=== PATIENT | female | born 1935 | race Caucasian/White ===

== ENCOUNTER 2018-09-13 06:05 | Day surgery (SDC) | payer MEDICARE, OTHER ==
[2018-09-13] MEDS ORDERED: Sodium Chloride 0.9% 10 ML Syringe FLUSH PRN (06:15)
[2018-09-13] MEDS ORDERED: Sodium Chloride 0.9% 1,000 ML IV SCH (06:15)
[2018-09-13] MEDS ORDERED: Gatifloxacin 0.5% Ophth Soln 2.5 ML Bot EYERT SCH (06:15)
[2018-09-13] MEDS: Cyclopentolate 1% Opth Soln 2 ML Bottle EYERT SCH ×3 (06:27→07:02)
[2018-09-13] MEDS: Phenylephrine 10% Ophth Soln 5 ML Bot EYERT SCH ×3 (06:34→07:08)
[2018-09-13] MEDS ORDERED: Carbachol 0.01% Intraocular 1.5 ML Vial EYERT ONE (08:51)
[2018-09-13] MEDS ORDERED: Balanced Salt Solution Plus Ophth Irrig 500 ML Bottle IOCULAR ONE (08:51)
[2018-09-13] MEDS ORDERED: Water For Irrigation,Sterile 1,500 ML Container IRR ONE (08:51)
[2018-09-13] MEDS ORDERED: Balanced Salt Solution Ophth Irrig 15 ML Bottle EYERT ONE (08:51)
[2018-09-13] MEDS ORDERED: Dexamethasone/Neomycin/Polymyxin B Ophth Oint 3.5 GM Tube EYERT ONE (08:52)
[2018-09-13] MEDS ORDERED: EPINEPHrine 1 MG/ML SDV ONE (08:52)
[2018-09-13] MEDS ORDERED: Lidocaine 2% with EPINEPHrine 1:100,000 20 ML MDV INJECT ONE (08:52)
[2018-09-13] MEDS ORDERED: Lidocaine 1% 10 ML MDV INJECT ONE (08:53)
[2018-09-13] MEDS ORDERED: Hyaluronate Sodium 1% 0.85 ML Syringe IOCULAR ONE ×2 (08:53)
[2018-09-13] MEDS ORDERED: Tetracaine HCl/PF 0.5% 4 ML Bottle EYEBOTH ONE (08:53)
--- NOTE | 2018-09-14 08:19 | OR ---
DATE OF SURGERY: 09/13/2018 SURGEON: Chente Nuñez MD PREOPERATIVE DIAGNOSIS: Cataract, right eye. POSTOPERATIVE DIAGNOSIS: Cataract, right eye. OPERATION PERFORMED: Phacoemulsification with posterior chamber lens insertion, right eye. HISTORY: The patient presents at this time with an increasing amount of difficulty seeing to read. The vision for the right eye is 20/100 -1. The right lens has a 3+ nuclear sclerosis, a 3+ cortical change, and a 3+ posterior subcapsular change. 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 FINDINGS: The patient was taken to the operating room where appropriate anesthesia, sedation and monitoring were provided. A retrobulbar block was given on the right side. The eye was massaged and was found to be appropriately soft. The eye and eyelids were then prepped and draped in the usual sterile manner. A lid speculum was placed. A micro sharp blade was used to enter the anterior chamber inside the limbus superior-temporally. Xylocaine was irrigated into the eye at this site. Healon was irrigated into the eye through this site. Then using a 2.85 mm corneal blade an entry was made into the anterior chamber just inside the limbus temporally. Healon was again irrigated into the eye. Then using a cystitome, the anterior capsulorrhexis was created. The lens nucleus was hydrodissected using a 27 gauge cannula and balanced salt solution. The phacoemulsification unit was introduced through the temporal site and the Duran spatula through the superior temporal site. In so doing, the lens nucleus was phacoemulsified. The cortical fragments of the lens were removed using the irrigation aspiration unit. The posterior capsule was polished. Healon was irrigated into the eye. The posterior chamber lens was inserted and rotated into position inside the capsular bag. The Healon was irrigated out of the eye. Miostat was irrigated into the eye and the pupil rounded nicely. A single interrupted 10-0 Nylon suture was placed through the temporal corneal incision site. Balanced salt solution was irrigated into the eye. The wound was tested and found to be tight. Maxitrol ointment was placed into the patient's right eye. The eyelids were closed and an eye patch and marie shield were placed. The patient left the operating room in good condition. /[id number]/MODL
== END 2018-09-13 09:47 | disposition home or self-care (01) ==
LOC: KA.SDS 06:05
PROVIDERS: ATTEND Ophthalmology
DX: E11.36 Type 2 diabetes mellitus with diabetic cataract (principal); H25.811 Combined forms of age-related cataract, right eye; I12.9 Hypertensive chronic kidney disease with stage 1 through stage 4 chronic kidney disease, or unspecified chronic kidney disease; E11.22 Type 2 diabetes mellitus with diabetic chronic kidney disease; N18.3 Chronic kidney disease, stage 3 (moderate); E66.9 Obesity, unspecified; Z68.41 Body mass index [BMI] 40.0-44.9, adult; E78.5 Hyperlipidemia, unspecified; F32.9 Major depressive disorder, single episode, unspecified; C91.90 Lymphoid leukemia, unspecified not having achieved remission; Z79.4 Long term (current) use of insulin; Z88.0 Allergy status to penicillin
CPT/HCPCS: 66984; 82962; A9270; C1780; J0171; J2001; J7030; 00142

== ENCOUNTER 2018-10-11 06:02 | Day surgery (SDC) | payer MEDICARE, OTHER ==
[2018-10-11] MEDS ORDERED: Sodium Chloride 0.9% 10 ML Syringe FLUSH PRN (06:15)
[2018-10-11] MEDS ORDERED: Sodium Chloride 0.9% 1,000 ML IV SCH (06:15)
[2018-10-11] MEDS ORDERED: Gatifloxacin 0.5% Ophth Soln 2.5 ML Bot EYELF SCH (06:15)
[2018-10-11] MEDS: Phenylephrine 10% Ophth Soln 5 ML Bot EYELF SCH ×3 (06:23→06:45)
[2018-10-11] MEDS: Cyclopentolate 1% Opth Soln 2 ML Bottle EYELF SCH ×3 (06:28→06:50)
[2018-10-11] MEDS ORDERED: Balanced Salt Solution Plus Ophth Irrig 500 ML Bottle IOCULAR ONE (08:56)
[2018-10-11] MEDS ORDERED: Balanced Salt Solution Ophth Irrig 15 ML Bottle EYELF ONE (08:56)
[2018-10-11] MEDS ORDERED: Water For Irrigation,Sterile 1,500 ML Container IRR ONE (08:56)
[2018-10-11] MEDS ORDERED: Carbachol 0.01% Intraocular 1.5 ML Vial EYELF ONE (08:56)
[2018-10-11] MEDS ORDERED: Lidocaine 2% with EPINEPHrine 1:100,000 20 ML MDV INJECT ONE (08:57)
[2018-10-11] MEDS ORDERED: Dexamethasone/Neomycin/Polymyxin B Ophth Oint 3.5 GM Tube EYELF ONE (08:57)
[2018-10-11] MEDS ORDERED: EPINEPHrine 1 MG/ML SDV ONE (08:57)
[2018-10-11] MEDS ORDERED: Tetracaine HCl/PF 0.5% 4 ML Bottle EYEBOTH ONE (08:59)
[2018-10-11] MEDS ORDERED: Lidocaine 1% 10 ML MDV INJECT ONE (08:59)
[2018-10-11] MEDS ORDERED: Hyaluronate Sodium 1% 0.85 ML Syringe IOCULAR ONE ×2 (08:59)
--- NOTE | 2018-10-12 10:00 | OR ---
DATE OF SURGERY: 10/11/2018 SURGEON: Chente Nuñez MD PREOPERATIVE DIAGNOSIS: Cataract, left eye. POSTOPERATIVE DIAGNOSIS: Cataract, left eye. OPERATION PERFORMED: Phacoemulsification with posterior chamber lens insertion, left eye. HISTORY: The patient presents at this time with an increasing amount of difficulty seeing to read using left eye. The left eye is a vision of 20/50 -2. The left lens has a 3+ nuclear sclerosis with 2+ cortical change and 1 to 2+ posterior subcapsular change. This eye has a combined cataract and a cataract of aging. FINDINGS: The patient was taken to the operating room where appropriate anesthesia, sedation and monitoring were provided. A retrobulbar block was given on the left side. The eye was massaged and was found to be appropriately soft. The eye and eyelids were then prepped and draped in the usual sterile manner. A lid speculum was placed. A micro sharp blade was used to enter the anterior chamber inside the limbus inferior-temporally. Xylocaine was irrigated into the eye at this site. Healon was irrigated into the eye through this site. Then using a 2.85 mm corneal blade an entry was made into the anterior chamber just inside the limbus temporally. Healon was again irrigated into the eye. Then using a cystitome, the anterior capsulorrhexis was created. The lens nucleus was hydrodissected using a 27 gauge cannula and balanced salt solution. The phacoemulsification unit was introduced through the temporal site and the Duran spatula through the inferior temporal site. In so doing, the lens nucleus was phacoemulsified. The cortical fragments of the lens were removed using the irrigation aspiration unit. The posterior capsule was polished. Healon was irrigated into the eye. The posterior chamber lens was inserted and rotated into position inside the capsular bag. The Healon was irrigated out of the eye. Miostat was irrigated into the eye and the pupil rounded nicely. A single interrupted 10-0 Nylon suture was placed through the temporal corneal incision site. Balanced salt solution was irrigated into the eye. The wound was tested and found to be tight. Maxitrol ointment was placed into the patient's left eye. The eyelids were closed and an eye patch and marie shield were placed. The patient left the operating room in good condition. /[id number]/MODL
== END 2018-10-11 09:45 | disposition home or self-care (01) ==
LOC: KA.SDS 06:02
PROVIDERS: ATTEND Ophthalmology
DX: E11.36 Type 2 diabetes mellitus with diabetic cataract (principal); H25.812 Combined forms of age-related cataract, left eye; I10 Essential (primary) hypertension; E66.9 Obesity, unspecified; Z68.41 Body mass index [BMI] 40.0-44.9, adult; E78.5 Hyperlipidemia, unspecified; F32.9 Major depressive disorder, single episode, unspecified; Z79.82 Long term (current) use of aspirin; Z79.84 Long term (current) use of oral hypoglycemic drugs; Z79.899 Other long term (current) drug therapy; Z98.41 Cataract extraction status, right eye; Z88.0 Allergy status to penicillin
CPT/HCPCS: 00142; 82962; A9270-GY; C1780; J0171; J2001; J7030

== ENCOUNTER 2019-04-13 20:25 | Emergency (ER) | payer MEDICARE, OTHER ==
--- NOTE | 2019-04-13 20:45 | EDM.PDOC ---
ED HPI GENERAL MEDICAL PROBLEM - General Chief Complaint: General Stated Complaint: generalized weakness Time Seen by Provider: 04/13/19 20:38 Source of Information: Reports: Patient, Family (Daughter) History Limitations: Reports: No Limitations - History of Present Illness INITIAL COMMENTS - FREE TEXT/NARRATIVE: Patient is an 83-year-old female who presents to the emergency department this evening with a complaint of generalized weakness. Per daughter patient has just not been feeling well today. There are no specific complaints. However, patient did present to the emergency Department with a fever of 101.6. Patient has history of hypertension, renal insufficiency, and [id number] diabetes. Patient denies nausea, vomiting, diarrhea, dysuria, abdominal pain, headache, chest pain, or shortness of breath. Onset: Today Duration: Hour(s): Severity: Mild Improves with: Reports: None Worsens with: Reports: None Associated Symptoms: Reports: Fever/Chills, Malaise. Denies: Chest Pain, Cough , Headaches, Nausea/Vomiting, Shortness of Breath - Related Data Allergies Allergy/AdvReac Type Severity Reaction Status Date / Time Penicillins Allergy Cannot Verified 04/13/19 20:44 Remember Home Meds: Home Meds Acetaminophen 1,000 mg PO TID PRN 09/06/18 [History] Aspirin [Halfprin] 81 mg PO DAILY 09/06/18 [History] Beta-Carotene [Beta Carotene] 1 tab PO DAILY 09/06/18 [History] Calcium Carbonate/Vitamin D3 [Calcium Carbonate/Vitamin D 600 MG-200 Unit] 1 tab PO BID 09/06/18 [History] Glimepiride 1 mg PO DAILY 09/06/18 [History] Lisinopril 20 mg PO DAILY 09/06/18 [History] Metoprolol Succinate 25 mg PO DAILY 09/06/18 [History] Multivitamin [Multivitamins] 1 cap PO DAILY 09/06/18 [History] Sertraline [Zoloft] 100 mg PO DAILY 09/06/18 [History] atorvaSTATin Calcium [Atorvastatin Calcium] 40 mg PO DAILY 09/06/18 [History] buPROPion [buPROPion XL] 150 mg PO DAILY 09/06/18 [History] metFORMIN HCl [Metformin HCl] 1,000 mg PO DAILY 09/06/18 [History] Cephalexin [Keflex] 500 mg PO TID #21 capsule 04/13/19 [Rx] Past Medical History HEENT History: Reports: Cataract Cardiovascular History: Reports: High Cholesterol, Hypertension, Other (See Below) Other Cardiovascular History: cardiomegaly Gastrointestinal History: Reports: None [employer] SALES History: Reports: Musculoskeletal History: Reports: Arthritis, Back Pain, Chronic, Other (See Below) Other Musculoskeletal History: osteopenia Psychiatric History: Reports: Depression Endocrine/Metabolic History: Reports: Diabetes, Type II, Obesity/BMI 30+, Osteopenia Hematologic History: Reports: Blood Transfusion(s) Oncologic (Cancer) History: Reports: Other (See Below) Other Oncologic History: CLL - Infectious Disease History Infectious Disease History: Reports: Chicken Pox, Measles, Mumps, Rubella - Past Surgical History HEENT Surgical History: Reports: Cataract Surgery, Oral Surgery, Tonsillectomy Cardiovascular Surgical History: Reports: None GI Surgical History: Reports: Colonoscopy Endocrine Surgical History: Reports: None Musculoskeletal Surgical History: Reports: None Social & Family History - Caffeine Use Caffeine Use: Reports: Coffee, Soda, Tea Other Caffeine Use: diet ED ROS GENERAL - Review of Systems Review Of Systems: ROS reveals no pertinent complaints other than HPI. Constitutional: Reports: Fever, Weakness HEENT: Reports: No Symptoms Respiratory: Reports: No Symptoms Cardiovascular: Reports: No Symptoms Endocrine: Reports: No Symptoms GI/Abdominal: Reports: No Symptoms : Reports: No Symptoms Musculoskeletal: Reports: No Symptoms Skin: Reports: No Symptoms Neurological: Reports: No Symptoms Psychiatric: Reports: No Symptoms Hematologic/Lymphatic: Reports: No Symptoms Immunologic: Reports: No Symptoms ED EXAM, GENERAL - Physical Exam Exam: See Below Exam Limited By: No Limitations General Appearance: Alert, WD/WN, No Apparent Distress Eye Exam: Bilateral Eye: Normal Inspection Nose: Normal Inspection, Normal Mucosa, No Blood Throat/Mouth: Normal Inspection, Normal Oropharynx, No Airway Compromise Head: Atraumatic, Normocephalic Neck: Normal Inspection, Supple Respiratory/Chest: No Respiratory Distress, Lungs Clear, Normal Breath Sounds, No Accessory Muscle Use, Chest Non-Tender Cardiovascular: Regular Rate, Rhythm, No Murmur GI/Abdominal: Normal Bowel Sounds, Soft, Non-Tender Back Exam: Normal Inspection. No: CVA Tenderness (L), CVA Tenderness (R) Extremities: Pedal Edema (2+ of chronic nature) Neurological: Alert, Oriented, Normal Cognition Psychiatric: Normal Affect, Normal Mood Skin Exam: Warm, Dry, Intact, Normal Color, No Rash Lymphatic: No Adenopathy Course - Vital Signs Last Recorded V/S: Last Vital Signs Temp 101.6 F H 04/13/19 20:47 Pulse 83 04/13/19 20:30 Resp 18 04/13/19 20:30 BP 126/40 L 04/13/19 20:30 Pulse Ox 92 L 04/13/19 20:30 - Orders/Labs/Meds Orders: Active Orders 24 hr Category Date Time Status CBC WITH AUTO DIFF [HEME] Stat Lab 04/13/19 20:39 Ordered CULTURE URINE [RM] Stat Lab 04/13/19 22:05 Ordered MANUAL DIFFERENTIAL QA/NC [HEME] Stat Lab 04/13/19 21:25 Results UA RFX MIGUE AND CULT IF INDIC [URIN] Stat Lab 04/13/19 20:39 Ordered UA W/O MICROSCOPIC [URIN] Stat Lab 04/13/19 20:39 Ordered Labs: Laboratory Tests 04/13/19 04/13/19 04/13/19 Range/Units 20:39 21:25 21:25 WBC 37.69 H* (5.00-10.00) 10^3/uL RBC 4.56 (3.80-5.50) 10^6/uL Hgb 12.7 (12.0-16.0) g/dL Hct 39.2 (37.0-47.0) % MCV 86.0 D (82.0-92.0) fL MCH 27.9 (27.0-31.0) pg MCHC 32.4 (32.0-36.0) g/dL RDW 14.0 (11.5-14.5) % Plt Count 199 (150-400) 10^3/uL MPV 9.1 (7.4-10.4) fL Add Manual Diff Yes Sodium 135 L (136-145) mmol/L Potassium 4.6 (3.3-5.3) mmol/L Chloride 98 (98-115) mmol/L Carbon Dioxide 25.8 (21.0-32.0) mmol/L Anion Gap 15.8 H (5-15) mmol/L BUN 23 (6-25) mg/dL Creatinine 1.32 H (0.51-1.17) mg/dL Est Cr Clr Drug Dosing 33.15 mL/min Estimated GFR (MDRD) 39 mL/min Glucose 114 H (75 - 99) mg/dL Calcium 9.1 (8.7-10.3) mg/dL Total Bilirubin 0.7 (0.2-1.0) mg/dL AST 16 (15-37) U/L ALT 18 (12-78) U/L Alkaline Phosphatase 85 (46-116) IU/L Total Protein 7.1 (6.4-8.2) g/dL Albumin 3.46 (3.00-4.80) g/dL Specimen Type Urinvoid Urine Color Yellow (YELLOW) Urine Appearance Clear (CLEAR) Urine pH 6.0 (5.0-9.0) Ur Specific [place] 1.020 (1.005-1.030) Urine Protein 30 H (NEGATIVE) mg/dL Urine Glucose (UA) Negative (NEGATIVE) mg/dL Urine Ketones Negative (NEGATIVE) mg/dL Urine Occult Blood Trace-intact H (NEGATIVE) Urine Nitrite Negative (NEGATIVE) Urine Bilirubin Negative (NEGATIVE) Urine Urobilinogen 0.2 (0.2-1.0) E.U./dL Ur Leukocyte Esterase Small H (NEGATIVE) Meds: Medications Discontinued Medications Generic Name Dose Route Start Last Admin Trade Name Freq PRN Reason Stop Dose Admin Acetaminophen 650 mg 04/13/19 20:39 04/13/19 20:47 Tylenol PO 04/13/19 20:40 650 mg NOW ONE Administration Cephalexin 500 mg 04/13/19 22:04 Keflex PO 04/13/19 22:05 ONETIME ONE - Re-Assessments/Exams Free Text/Narrative Re-Assessment/Exam: 04/13/19 22:06 Patient now afebrile, vital signs stable, nontoxic appearing, given 500 mg Keflex in ER. Leukocytosis of chronic nature. Departure - Departure Time of Disposition: 22:07 Disposition: Home, Self-Care 01 Condition: Good Clinical Impression: UTI, Urinary tract infectious disease - Discharge Information Prescriptions: Cephalexin [Keflex] 500 mg PO TID #21 capsule Instructions: Urinary Tract Infection, Adult, [id number], Fever, Adult Referrals: Radha Gregorio MD [Physician] - Forms: ED Department Discharge Additional Instructions: Follow-up with Dr. Gordon on Wednesday. Return to emergency department sooner if symptoms continue or worsen. - My Orders Last 24 Hours: My Active Orders 04/13/19 20:39 CBC WITH AUTO DIFF [HEME] Stat UA RFX MIGUE AND CULT IF INDIC [URIN] Stat UA W/O MICROSCOPIC [URIN] Stat 04/13/19 21:25 MANUAL DIFFERENTIAL QA/NC [HEME] Stat 04/13/19 22:05 CULTURE URINE [RM] Stat - Assessment/Plan Last 24 Hours: My Active Orders 04/13/19 20:39 CBC WITH AUTO DIFF [HEME] Stat UA RFX MIGUE AND CULT IF INDIC [URIN] Stat UA W/O MICROSCOPIC [URIN] Stat 04/13/19 21:25 MANUAL DIFFERENTIAL QA/NC [HEME] Stat 04/13/19 22:05 CULTURE URINE [RM] Stat Assessment:: Urinary tract infection Plan: Follow-up with Dr. Gordon
[2019-04-13] MEDS: Acetaminophen 325 MG Tab PO ONE (20:47)
[2019-04-13 21:59] LABS: ANION GAP 15.8 mmol/L (5-15)
[2019-04-13] MEDS: Cephalexin 250 MG Cap PO ONE (22:10)
== END 2019-04-13 22:10 | disposition home or self-care (01) ==
LOC: KA.ED 20:25
DX: N39.0 Urinary tract infection, site not specified (principal); I10 Essential (primary) hypertension; E78.00 Pure hypercholesterolemia, unspecified; M19.90 Unspecified osteoarthritis, unspecified site; F32.9 Major depressive disorder, single episode, unspecified; E11.9 Type 2 diabetes mellitus without complications; E66.9 Obesity, unspecified; Z68.41 Body mass index [BMI] 40.0-44.9, adult; Z88.0 Allergy status to penicillin; Z79.82 Long term (current) use of aspirin; Z79.899 Other long term (current) drug therapy; Z79.84 Long term (current) use of oral hypoglycemic drugs
CPT/HCPCS: 36415; 80053; 81003; 85025; 87086; 87088; 87186; 99284; A9270-GY

== ENCOUNTER 2020-04-08 18:10 | Emergency (ER) | payer MEDICARE, OTHER ==
--- NOTE | 2020-04-08 18:14 | EDM.PDOC ---
ED HPI GENERAL MEDICAL PROBLEM - General Chief Complaint: Trauma Stated Complaint: Fall Time Seen by Provider: 04/08/20 18:14 Source of Information: Reports: Patient, Family - History of Present Illness INITIAL COMMENTS - FREE TEXT/NARRATIVE: Momo, while folding close, got her feet tangled up causing her to fall forward. Struck nose and forehead directly onto the floor. Does not think there was loss of consciousness but has already developed bruising to the nose and between the eyes of the forehead with swelling. States she takes aspirin daily, 81 mg every morning, but also will take aspirin throughout the day if aches or pains develop that are more severe than her Tylenol benefits. States she started antibiotic therapy today secondary of UTI that developed late last week and worsened over the weekend. Denies fever chills or any COVID-19 exposure risk. Onset: Today Face/Facial Pain Score (Numeric/FACES): 4 - Related Data Allergies Allergy/AdvReac Type Severity Reaction Status Date / Time Penicillins Allergy Cannot Verified 04/08/20 18:29 Remember Home Meds: Home Meds Aspirin [Halfprin] 81 mg PO DAILY 09/06/18 [History] Calcium Carbonate/Vitamin D3 [Calcium Carbonate/Vitamin D 600 MG-200 Unit] 1 tab PO DAILY 09/06/18 [History] Glimepiride 1 mg PO DAILY 09/06/18 [History] Lisinopril 20 mg PO DAILY 09/06/18 [History] Metoprolol Succinate 25 mg PO DAILY 09/06/18 [History] Multivitamin [Multivitamins] 1 cap PO DAILY 09/06/18 [History] Sertraline [Zoloft] 100 mg PO DAILY 09/06/18 [History] atorvaSTATin Calcium [Atorvastatin Calcium] 40 mg PO DAILY 09/06/18 [History] buPROPion [buPROPion XL] 150 mg PO DAILY 09/06/18 [History] metFORMIN HCl [Metformin HCl] 1,000 mg PO DAILY 09/06/18 [History] Acetaminophen [Tylenol] 325 mg PO Q4H PRN 04/08/20 [History] Sulfamethoxazole/Trimethoprim [Bactrim Ds Tablet] 1 each PO BID 04/08/20 [History] Past Medical History HEENT History: Reports: Cataract, Impaired Vision Cardiovascular History: Reports: High Cholesterol, Hypertension, Other (See Below) Other Cardiovascular History: cardiomegaly Gastrointestinal History: Reports: None [employer]ESS [employer] History: Reports: Musculoskeletal History: Reports: Arthritis, Back Pain, Chronic, Other (See Below) Other Musculoskeletal History: osteopenia Psychiatric History: Reports: Depression Endocrine/Metabolic History: Reports: Diabetes, Type II, Obesity/BMI 30+, Osteopenia Hematologic History: Reports: Blood Transfusion(s) Oncologic (Cancer) History: Reports: Other (See Below) Other Oncologic History: CLL - Infectious Disease History Infectious Disease History: Reports: Chicken Pox, Measles, Mumps, Rubella - Past Surgical History HEENT Surgical History: Reports: Cataract Surgery, Oral Surgery, Tonsillectomy Cardiovascular Surgical History: Reports: None GI Surgical History: Reports: Colonoscopy Endocrine Surgical History: Reports: None Musculoskeletal Surgical History: Reports: None Social & Family History - Family History Family Medical History: Noncontributory - Caffeine Use Caffeine Use: Reports: Coffee, Soda, Tea Other Caffeine Use: diet ED ROS GENERAL - Review of Systems Review Of Systems: Comprehensive ROS is negative, except as noted in HPI. ED EXAM, GENERAL - Physical Exam Exam: See Below Free Text/Narrative:: Alert oriented and cheerful. There is deformity to the nasal bones with swelling at the bridge of the nose as well as hematoma contusion and ecchymosis between the eyes to the inferior forehead. PERRLA no icterus no injection. Nose is tender to touch with nares showing no evidence of epistaxis. [place] moist mucous membranes. Neck soft supple no cervical tenderness no rigidity. Thorax is clear throughout no wheezes no crackles. Cardiac is regular I do not appreciate any murmur. No injury or complaint to the upper extremities is noted. No abdominal pelvic or lower extremity discomfort. Course - Vital Signs Last Recorded V/S: Last Vital Signs Temp 37.1 C 04/08/20 18:19 Pulse 78 04/08/20 18:19 Resp 18 04/08/20 18:19 BP 135/69 04/08/20 18:19 Pulse Ox 94 L 04/08/20 18:19 - Orders/Labs/Meds Orders: Active Orders 24 hr Category Date Time Status Facial Bones Comp Min 3V [CR] Stat Exams 04/08/20 18:24 Stop Req Labs: Laboratory Tests 04/08/20 04/08/20 Range/Units 18:38 18:38 WBC 30.37 H* (5.00-10.00) 10^3/uL RBC 4.41 (3.80-5.50) 10^6/uL Hgb 12.2 (12.0-16.0) g/dL Hct 39.2 (37.0-47.0) % MCV 88.9 (82.0-92.0) fL MCH 27.7 (27.0-31.0) pg MCHC 31.1 L (32.0-36.0) g/dL RDW 13.7 (11.5-14.5) % RDW Std Deviation Cancelled RDW Coeff of Arnie Cancelled Plt Count 197 (150-400) 10^3/uL MPV 9.6 (7.4-10.4) fL Add Manual Diff Yes Neutrophils % (Manual) 32 L (50-70) % Band Neutrophils % 1 L (4-12) % Lymphocytes % (Manual) 61 H (20-40) % Monocytes % (Manual) 2 (2-8) % Eosinophils % (Manual) 4 H (1-3) % Nucleated RBC % Cancelled Absolute Neutrophils 9.72 Band Neutrophils # 0.30 Lymphocytes # (Manual) 18.53 Monocytes # (Manual) 0.61 Eosinophils # (Manual) 1.21 Immature Plt Fraction Cancelled Sodium 140 (136-145) mmol/L Potassium 5.0 (3.3-5.3) mmol/L Chloride 104 (98-115) mmol/L Carbon Dioxide 23.4 (21.0-32.0) mmol/L Anion Gap 17.6 H (5-15) mmol/L BUN 35 H (6-25) mg/dL Creatinine 1.41 H (0.51-1.17) mg/dL Est Cr Clr Drug Dosing 30.50 mL/min Estimated GFR (MDRD) 36 mL/min Glucose 126 H (75 - 99) mg/dL Calcium 8.7 (8.7-10.3) mg/dL - Re-Assessments/Exams Free Text/Narrative Re-Assessment/Exam: 04/08/20 18:43 While awaiting lab draw and radiology, started developing some tenderness to the cervical spine, and cervical paraspinal muscles. Departure - Departure Time of Disposition: 19:46 Disposition: Home, Self-Care 01 Condition: Good Clinical Impression: Closed fracture nasal bone, Fall, Contusion, UTI, Urinary tract infectious disease, Hematoma, Leukocytosis, Pain of cervical spine - Discharge Information *PRESCRIPTION DRUG MONITORING PROGRAM REVIEWED*: Not Applicable *COPY OF PRESCRIPTION DRUG MONITORING REPORT IN PATIENT THOMAS: Not Applicable Instructions: Nasal Fracture, [id number], Nasal Fracture, Urinary Tract Infection, Adult, [id number] Referrals: Radha Gregorio MD [Primary Care Provider] - Forms: ED Department Discharge Additional Instructions: Your neck and head are negative for any acute fracture injury. You have swelling of your forehead. There is a slight nasal bone fracture which does not require treatment at this time. You have elevated white count likely due to the urine infection that you know you have and are being treated for. Continue your medications as directed, making sure you do not miss any of your antibiotic. Increase the amount of water you are drinking to improve your urine infection treatment, as well as your kidney number. You need to get to the clinic and see Lana either Wednesday afternoon or to have your white blood cell count reevaluated and recheck on your urine infection improvement. You would be better taking only the one baby aspirin each morning, and using Tylenol or ibuprofen if you have additional aches and pains developing during the day. The more aspirin you take the easier it is to have continued bleeding when you have any type of injury. Call the clinic tomorrow to establish the appointment for Wednesday or . The nasal bones typically do not require any form of treatment, unless it leads to breathing difficulty or changes in your sinus infection or nasal drainage. Call or return if symptoms change or worsen for concern. Sepsis Event Note (ED) - Focused Exam Vital Signs: Vital Signs Temp Pulse Resp BP Pulse Ox 04/08/20 18:19 37.1 C 78 18 135/69 94 L - Problem List & Annotations (1) Fall SNOMED Code(s): 3384687, 058680789 Code(s): W19.XXXA - UNSPECIFIED FALL, INITIAL ENCOUNTER Status: Acute Priority: Medium Qualifiers: Encounter type: initial encounter Qualified Code(s): W19.XXXA - Unspecified fall, initial encounter (2) Hematoma SNOMED Code(s): 750394615 Code(s): T14.8XXA - OTHER INJURY OF UNSPECIFIED BODY REGION, INITIAL ENCOUNTER Status: Acute Priority: High (3) Contusion SNOMED Code(s): 315363535 Code(s): T14.8XXA - OTHER INJURY OF UNSPECIFIED BODY REGION, INITIAL ENCOUNTER Status: Acute Priority: High Qualifiers: Encounter type: initial encounter Contusion area: head Contusion of head detail: other part of head Qualified Code(s): S00.83XA - Contusion of other part of head, initial encounter (4) Pain of cervical spine SNOMED Code(s): 154641643 Code(s): M54.2 - CERVICALGIA Status: Acute Priority: High (5) Leukocytosis SNOMED Code(s): 361970999, 624529586 Code(s): D72.829 - ELEVATED WHITE BLOOD CELL COUNT, UNSPECIFIED Status: Acute Priority: High Qualifiers: Qualified Code(s): D72.829 - Elevated white blood cell count, unspecified (6) Closed fracture nasal bone SNOMED Code(s): 72700265 Code(s): S02.2XXA - FRACTURE OF NASAL BONES, INIT ENCNTR FOR CLOSED FRACTURE Status: Acute Qualifiers: Encounter type: initial encounter Qualified Code(s): S02.2XXA - Fracture of nasal bones, initial encounter for closed fracture - Problem List Review Problem List Initiated/Reviewed/Updated: Yes - My Orders Last 24 Hours: My Active Orders 04/08/20 18:24 Facial Bones Comp Min 3V [CR] Stat - Assessment/Plan Last 24 Hours: My Active Orders 04/08/20 18:24 Facial Bones Comp Min 3V [CR] Stat Plan: Your neck and head are negative for any acute fracture injury. You have swelling of your forehead. There is a slight nasal bone fracture which does not require treatment at this time. You have elevated white count likely due to the urine infection that you know you have and are being treated for. Continue your medications as directed, making sure you do not miss any of your antibiotic. Increase the amount of water you are drinking to improve your urine infection treatment, as well as your kidney number. You need to get to the clinic and see Lana either Wednesday afternoon or morning to have your white blood cell count reevaluated and recheck on your urine infection improvement. You would be better taking only the one baby aspirin each morning, and using Tylenol or ibuprofen if you have additional aches and pains developing during the day. The more aspirin you take the easier it is to have continued bleeding when you have any type of injury. Call the clinic tomorrow to establish the appointment for Wednesday afternoon or . The nasal bones typically do not require any form of treatment, unless it leads to breathing difficulty or changes in your sinus infection or nasal drainage. Call or return if symptoms change or worsen for concern.
[2020-04-08 19:03] LABS: ANION GAP 17.6 mmol/L (5-15)
--- NOTE | 2020-04-08 19:31 | CT ---
[id number] CT/CT Cervical Spine WO IV EXAM: CT Cervical Spine WO IV INDICATION: NECK PAIN POST FALL COMPARISON: None. DISCUSSION: No acute fracture or compression deformity. Cervical spondylosis, including advanced C5-6 and C6-7 degenerative disc disease. Facet joint arthropathy at C4-5 results in grade 1 anterolisthesis. No prevertebral soft tissue edema. Lung apices are clear. IMPRESSION: No acute findings in the cervical spine. Silvano Colorado MD 04/08/20 [id number] Thank you for allowing us to participate in the care of your patient.
--- NOTE | 2020-04-08 19:33 | CT ---
[id number] CT/CT Facial Bones WO IV EXAM: CT Facial Bones WO IV INDICATION: FALL, TRAUMA COMPARISON: None. DISCUSSION: Acute nasal bone fracture. Sagittal series 9 demonstrates slight depression at the tip of the nasal bone. No other facial bone fractures are identified. Mild paranasal sinusitis. Mastoid air cells are clear. IMPRESSION: Acute slightly depressed nasal bone fracture. No other acute findings. Silvano Colorado MD 04/08/20 1933 Thank you for allowing us to participate in the care of your patient.
--- NOTE | 2020-04-08 19:34 | CT ---
[id number] CT/CT Head WO IV Exam: CT Head WO IV Indication:FALL STRUCK FACE AND HEAD Comparison: No prior imaging for comparison. Discussion: Frontal scalp contusion. No underlying calvarial fracture. No acute intracranial hemorrhage. Extra-axial fluid collection or hydrocephalus. Moderate changes of chronic small vessel disease in the brain, including central predominant parenchymal atrophy and white matter gliosis. Impression: Small frontal scalp contusion without underlying calvarial fracture or acute intracranial hemorrhage. Silvano Colorado MD 04/08/20 1933 Thank you for allowing us to participate in the care of your patient.
== END 2020-04-08 20:00 | disposition home or self-care (01) ==
LOC: KA.ED 18:10
DX: S02.2XXA Fracture of nasal bones, initial encounter for closed fracture (principal); S00.83XA Contusion of other part of head, initial encounter; N39.0 Urinary tract infection, site not specified; D72.829 Elevated white blood cell count, unspecified; M54.2 Cervicalgia; E11.9 Type 2 diabetes mellitus without complications; F32.9 Major depressive disorder, single episode, unspecified; E78.00 Pure hypercholesterolemia, unspecified; M19.90 Unspecified osteoarthritis, unspecified site; E66.9 Obesity, unspecified; I10 Essential (primary) hypertension; Z88.0 Allergy status to penicillin; Z79.82 Long term (current) use of aspirin; Z68.41 Body mass index [BMI] 40.0-44.9, adult; Z79.899 Other long term (current) drug therapy; W18.39XA Other fall on same level, initial encounter
CPT/HCPCS: 36415; 70450; 70486; 72125; 80048; 85025; 99284; 99284-25

== ENCOUNTER 2021-06-04 01:06 | Emergency (ER) | payer MEDICARE, OTHER ==
[2021-06-04 01:28] VITALS: BP 141/66; PULSE 59
[2021-06-04 01:57] LABS: ANION GAP 13.9 mmol/L (5-15)
--- NOTE | 2021-06-04 02:02 | EDM.PDOC ---
ED HPI GENERAL MEDICAL PROBLEM - General Chief Complaint: General Stated Complaint: hallucinations Time Seen by Provider: 06/04/21 01:42 Source of Information: Reports: Patient, Family (dtr) History Limitations: Reports: No Limitations - History of Present Illness INITIAL COMMENTS - FREE TEXT/NARRATIVE: Patient presents with hallucinations. She says she heard people pounding on her bedroom window and someone jumped up on her bed. She is sure there are some young people sleeping on her deck outside the window. Her daughter lives next door and is with her tonight. She says patient has been having hallucinations for 3 weeks. Patient denies fever, dysuria, new medications, significant cough. Her PCP has said that her bladder medication could possibly cause hallucinati ons. Dtr also says she has had UTI's in the past but most recent about a year ago. Bilateral Knee Pain Score (Numeric/FACES): 5 - Related Data Allergies Allergy/AdvReac Type Severity Reaction Status Date / Time Penicillins Allergy Cannot Verified 06/04/21 01:23 Remember Home Meds: Home Meds Aspirin [Halfprin] 81 mg PO DAILY 09/06/18 [History] Calcium Carbonate/Vitamin D3 [Calcium Carbonate/Vitamin D 600 MG-200 Unit] 1 tab PO DAILY 09/06/18 [History] Glimepiride 1 mg PO DAILY 09/06/18 [History] Lisinopril 20 mg PO DAILY 09/06/18 [History] Metoprolol Succinate 25 mg PO DAILY 09/06/18 [History] Multivitamin [Multivitamins] 1 cap PO DAILY 09/06/18 [History] Sertraline [Zoloft] 100 mg PO DAILY 09/06/18 [History] atorvaSTATin Calcium [Atorvastatin Calcium] 40 mg PO DAILY 09/06/18 [History] buPROPion [buPROPion XL] 150 mg PO DAILY 09/06/18 [History] metFORMIN HCl [Metformin HCl] 1,000 mg PO DAILY 09/06/18 [History] Acetaminophen [Tylenol] 325 mg PO Q4H PRN 04/08/20 [History] Past Medical History HEENT History: Reports: Cataract, Impaired Vision Cardiovascular History: Reports: High Cholesterol, Hypertension, Other (See Below) Other Cardiovascular History: cardiomegaly Respiratory History: Reports: None Gastrointestinal History: Reports: None Genitourinary History: Reports: Urinary Incontinence 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: Musculoskeletal History: Reports: Arthritis, Back Pain, Chronic, Other (See Below) Other Musculoskeletal History: osteopenia Neurological History: Reports: None Psychiatric History: Reports: Depression Endocrine/Metabolic History: Reports: Diabetes, Type II, Obesity/BMI 30+, Osteopenia Hematologic History: Reports: Blood Transfusion(s) Immunologic History: Reports: None Oncologic (Cancer) History: Reports: Other (See Below) Other Oncologic History: CLL Dermatologic History: Reports: None - Infectious Disease History Infectious Disease History: Reports: Chicken Pox, Measles, Mumps, Rubella - Past Surgical History HEENT Surgical History: Reports: Cataract Surgery, Oral Surgery, Tonsillectomy Cardiovascular Surgical History: Reports: None GI Surgical History: Reports: Colonoscopy Endocrine Surgical History: Reports: None Musculoskeletal Surgical History: Reports: None Social & Family History - Family History Family Medical History: No Pertinent Family History - Tobacco Use Tobacco Use Status *Q: Never Tobacco User - Caffeine Use Caffeine Use: Reports: Coffee Other Caffeine Use: diet - Recreational Drug Use Recreational Drug Use: No ED ROS GENERAL - Review of Systems Review Of Systems: See Below Constitutional: Denies: Fever, Chills, Malaise, Weakness HEENT: Denies: Ear Pain, Throat Pain, Vision Change Respiratory: Reports: Cough (occasionally when she has a tickle in her throat). Denies: Shortness of Breath Cardiovascular: Denies: Chest Pain, Lightheadedness, Syncope GI/Abdominal: Denies: Abdominal Pain, Diarrhea, Vomiting : Denies: Dysuria, Flank Pain, Frequency Musculoskeletal: Reports: No Symptoms Skin: Reports: No Symptoms Neurological: Reports: Confusion. Denies: Headache, Seizure, Syncope, Trouble Speaking Psychiatric: Reports: Hallucinations ED EXAM, GENERAL - Physical Exam Exam: See Below Exam Limited By: No Limitations General Appearance: Alert, WD/WN, No Apparent Distress Eye Exam: Bilateral Eye: EOMI, Normal Inspection, PERRL Ears: Normal External Exam, Hearing Grossly Normal Nose: Normal Inspection, No Blood Throat/Mouth: Normal Inspection, Normal Lips, Normal Oropharynx, Normal Voice, No Airway Compromise Head: Atraumatic, Normocephalic Neck: Normal Inspection, Full Range of Motion Respiratory/Chest: No Respiratory Distress, Lungs Clear, Normal Breath Sounds. No: Crackles, Rales, Rhonchi, Wheezing, Stridor Cardiovascular: Normal Peripheral Pulses, Regular Rate, Rhythm, No Murmur GI/Abdominal: Normal Bowel Sounds, Soft, Non-Tender, No Organomegaly, No Distention, No Abnormal Bruit Back Exam: Normal Inspection, Full Range of Motion. No: CVA Tenderness (L), CVA Tenderness (R) Neurological: Alert, Oriented, No Motor/Sensory Deficits Psychiatric: Normal Affect, Normal Mood Skin Exam: Warm, Dry, Intact, Normal Color, No Rash Course - Vital Signs Last Recorded V/S: Last Vital Signs Temp 97.5 F 06/04/21 01:24 Pulse 59 L 06/04/21 01:24 Resp 18 06/04/21 01:24 BP 141/66 H 06/04/21 01:24 Pulse Ox 95 06/04/21 01:24 - Orders/Labs/Meds Orders: Active Orders 24 hr Category Date Time Status CULTURE URINE [RM] Stat Lab 06/04/21 02:05 Received Labs: Laboratory Tests 06/04/21 06/04/21 06/04/21 Range/Units 01:22 01:22 01:22 WBC 31.43 H* (5.00-10.00) 10^3/uL RBC 4.54 (3.80-5.50) 10^6/uL Hgb 12.4 (12.0-16.0) g/dL Hct 40.8 (37.0-47.0) % MCV 89.9 (82.0-92.0) fL MCH 27.3 (27.0-31.0) pg MCHC 30.4 L (32.0-36.0) g/dL RDW 13.7 (11.5-14.5) % Plt Count 170 (150-400) 10^3/uL MPV 9.0 (7.4-10.4) fL Immature Gran % (Auto) 0.3 (0.0-5.0) % Neut % (Auto) 16.8 L (50.0-70.0) % Lymph % (Auto) 77.0 H (20.0-40.0) % Posey % (Auto) 4.5 (2.0-8.0) % Eos % (Auto) 1.3 (1.0-3.0) % Baso % (Auto) 0.1 (0.0-1.0) % Neut # (Auto) 5.30 (2.50-7.00) 10^3/uL Lymph # (Auto) 24.19 H (1.00-4.00) 10^3/uL Posey # (Auto) 1.40 H (0.10-0.80) 10^3/uL Eos # (Auto) 0.42 H (0.10-0.30) 10^3/uL Baso # (Auto) 0.04 (0.00-0.10) 10^3/uL Immature Gran # (Auto) 0.08 (0.00-0.50) 10^3/uL Sodium 144 (136-145) mmol/L Potassium 4.8 (3.5-5.1) mmol/L Chloride 106 (98-107) mmol/L Carbon Dioxide 28.9 (21.0-32.0) mmol/L Anion Gap 13.9 (5-15) mmol/L BUN 29 H (7-18) mg/dL Creatinine 1.33 H (0.51-1.17) mg/dL Est Cr Clr Drug Dosing 31.76 mL/min Estimated GFR (MDRD) 38 mL/min Glucose 85 (70-140) mg/dL Lactic Acid 1.2 (0.4-2.0) mmol/L Calcium 8.8 (8.7-10.3) mg/dL Specimen Type Urine Color (YELLOW) Urine Appearance (CLEAR) Urine pH (5.0-9.0) Ur Specific [place] (1.005-1.030) Urine Protein (NEGATIVE) mg/dL Urine Glucose (UA) (NEGATIVE) mg/dL Urine Ketones (NEGATIVE) mg/dL Urine Occult Blood (NEGATIVE) Urine Nitrite (NEGATIVE) Urine Bilirubin (NEGATIVE) Urine Urobilinogen (0.2-1.0) E.U./dL Ur Leukocyte Esterase (NEGATIVE) Urine RBC (0-5) /HPF Urine WBC (0-5) /HPF Ur Epithelial Cells /LPF Urine Bacteria (NONE TO FEW) /HPF 06/04/21 Range/Units 02:05 WBC (5.00-10.00) 10^3/uL RBC (3.80-5.50) 10^6/uL Hgb (12.0-16.0) g/dL Hct (37.0-47.0) % MCV (82.0-92.0) fL MCH (27.0-31.0) pg MCHC (32.0-36.0) g/dL RDW (11.5-14.5) % Plt Count (150-400) 10^3/uL MPV (7.4-10.4) fL Immature Gran % (Auto) (0.0-5.0) % Neut % (Auto) (50.0-70.0) % Lymph % (Auto) (20.0-40.0) % Posey % (Auto) (2.0-8.0) % Eos % (Auto) (1.0-3.0) % Baso % (Auto) (0.0-1.0) % Neut # (Auto) (2.50-7.00) 10^3/uL Lymph # (Auto) (1.00-4.00) 10^3/uL Posey # (Auto) (0.10-0.80) 10^3/uL Eos # (Auto) (0.10-0.30) 10^3/uL Baso # (Auto) (0.00-0.10) 10^3/uL Immature Gran # (Auto) (0.00-0.50) 10^3/uL Sodium (136-145) mmol/L Potassium (3.5-5.1) mmol/L Chloride (98-107) mmol/L Carbon Dioxide (21.0-32.0) mmol/L Anion Gap (5-15) mmol/L BUN (7-18) mg/dL Creatinine (0.51-1.17) mg/dL Est Cr Clr Drug Dosing mL/min Estimated GFR (MDRD) mL/min Glucose (70-140) mg/dL Lactic Acid (0.4-2.0) mmol/L Calcium (8.7-10.3) mg/dL Specimen Type Urinvoid Urine Color Yellow (YELLOW) Urine Appearance Slightly cloudy H (CLEAR) Urine pH 5.5 (5.0-9.0) Ur Specific [place] 1.015 (1.005-1.030) Urine Protein Negative (NEGATIVE) mg/dL Urine Glucose (UA) Negative (NEGATIVE) mg/dL Urine Ketones Negative (NEGATIVE) mg/dL Urine Occult Blood Negative (NEGATIVE) Urine Nitrite Negative (NEGATIVE) Urine Bilirubin Negative (NEGATIVE) Urine Urobilinogen 0.2 (0.2-1.0) E.U./dL Ur Leukocyte Esterase Large H (NEGATIVE) Urine RBC 0-5 (0-5) /HPF Urine WBC 10-20 H (0-5) /HPF Ur Epithelial Cells Moderate H /LPF Urine Bacteria Occasional (NONE TO FEW) /HPF Meds: Medications Discontinued Medications Generic Name Dose Route Start Last Admin Trade Name Keegan PRN Reason Stop Dose Admin Nitrofurantoin Macrocrystals 100 mg 06/04/21 02:28 Nitrofurantoin Monohydrate/Macrocrystalline 100 Mg Cap PO 06/04/21 02:29 ONETIME ONE - Re-Assessments/Exams Free Text/Narrative Re-Assessment/Exam: 06/04/21 02:11 WBC is 31. UA is pending. I reviewed previous WBC's and over the last 7 years she has had it checked here 20+ times, ranging from 27-45. There is no recorded diagnosis of leukemia in her chart so I asked her daughter about it. She says yes she has the "good" kind of leukemia. Lymphocytes are very elevated so I presume it is CLL. BUN, GFR, and Creatinine are mildly abnormal but at baseline compared with previous. 06/04/21 02:32 UA shows large leukocyte esterase today and was small on comparison in 2019. Will culture urine. She has treated with Bactrim successfully in the past but I want to avoid possible hyperkalemia with her Lisinopril so will treat now with Macrobid. A dose given in ER and Rx for Macrobid 100 mg #10, 1 po bid x 5 days. Discussed findings and treatment plan with patient and her daughter. Patient discharged to home in stable condition. Departure - Departure Time of Disposition: 02:41 Disposition: Home, Self-Care 01 Condition: Good Clinical Impression: Acute cystitis Qualifiers: Hematuria presence: without hematuria Qualified Code(s): N30.00 - Acute cystitis without hematuria Leukemia, chronic Qualifiers: Leukemia Active/Remission status: without remission Qualified Code(s): C95.10 - Chronic leukemia of unspecified cell type not having achieved remission - Discharge Information Instructions: Urinary Tract Infection, Adult, [id number] Forms: ED Department Discharge Additional Instructions: Drink 8 cups of water daily. Take the antibiotic as directed. Follow up with your PCP in one week. If any worsening, recheck sooner in clinic or ER as needed. Sepsis Event Note (ED) - Evaluation Sepsis Screening Result: No Definite Risk - Focused Exam Vital Signs: Vital Signs Temp Pulse Resp BP Pulse Ox 06/04/21 01:24 97.5 F 59 L 18 141/66 H 95 - My Orders Last 24 Hours: My Active Orders 06/04/21 02:05 CULTURE URINE [RM] Stat - Assessment/Plan Last 24 Hours: My Active Orders 06/04/21 02:05 CULTURE URINE [RM] Stat
[2021-06-04] MEDS: Nitrofurantoin Monohydrate/Macrocrystalline 100 MG Cap PO ONE (02:39)
== END 2021-06-04 02:55 | disposition home or self-care (01) ==
LOC: KA.ED 01:06
DX: N30.00 Acute cystitis without hematuria (principal); C95.10 Chronic leukemia of unspecified cell type not having achieved remission; E78.00 Pure hypercholesterolemia, unspecified; I10 Essential (primary) hypertension; E11.9 Type 2 diabetes mellitus without complications; E66.9 Obesity, unspecified; Z68.41 Body mass index [BMI] 40.0-44.9, adult; Z88.0 Allergy status to penicillin; Z79.82 Long term (current) use of aspirin; Z79.899 Other long term (current) drug therapy; Z79.84 Long term (current) use of oral hypoglycemic drugs
CPT/HCPCS: 36415; 80048; 81001; 83605; 85025; 87086; 99284; A9270-GY

== ENCOUNTER 2021-07-03 00:16 | Emergency (ER) | payer MEDICARE, OTHER ==
[2021-07-03] MEDS ORDERED: Sodium Chloride 0.9% 10 ML Syringe FLUSH PRN (00:35)
--- NOTE | 2021-07-03 01:17 | EDM.PDOC ---
ED HPI GENERAL MEDICAL PROBLEM - General Chief Complaint: General Stated Complaint: HALLUCINATIONS Time Seen by Provider: 07/03/21 00:31 Source of Information: Reports: Patient, Family - History of Present Illness INITIAL COMMENTS - FREE TEXT/NARRATIVE: 85 YO WF PRESENTS TO ER ACCOMPANIED BY DAUGHTER COMPLAINING OF RECURRENT HALLUCINATIONS WHICH BEGAN APPROXIMATELY 1 MONTH AGO. PT WAS RECENTLY STARTED ON RISPERIDONE 0.5MG QHS BUT DAUGHTER REPORTS NO CHANGE IN HER MOMS VISUAL HALLUCINATIONS. PT REPORTS THERE ARE PEOPLE THAT KEEP COMING INTO HER HOUSE. PT STATES THEY DON'T SAY ANYTHING TO HER AND AREN'T VIOLENT AND DON'T SCARE HER BUT SHE WISHES THEY WOULD GO AWAY. NO AUDITORY HALLUCINATIONS, NO SUICIDAL OR HOMICIDAL IDEATION. PT ALERT AND ORIENTED TO SELF, PLACE AND TIME. PT WITH PREVIOUS HISTORY OF URINARY TRACT INFECTIONS X 2 OVER THE LAST MONTH. PT DENIES DYSURIA, NO FREQUENCY OR URGENCY. PT DENIES ANY RECENT ILLNESS, NO COUGH/CONGESTION, NO FEVER/CHILLS. DAUGHTER STATES PT HAS PERIODS OF LUCENCY. DAUGHTER STATES THIS MOSTLY OCCURS BEFORE BEDTIME. Onset: Unknown/Unsure Duration: Waxing/Waning Location: Reports: Generalized Improves with: Reports: None Worsens with: Reports: None Associated Symptoms: Reports: Confusion. Denies: Chest Pain, Cough, Fever/Chills, Nausea/Vomiting, Shortness of Breath Treatments TELEMETRY REGISTERED NURSE: Reports: Acetaminophen - Related Data Allergies Allergy/AdvReac Type Severity Reaction Status Date / Time Penicillins Allergy Cannot Verified 07/03/21 00:58 Remember Home Meds: Home Meds Aspirin [Halfprin] 81 mg PO DAILY 09/06/18 [History] Calcium Carbonate/Vitamin D3 [Calcium Carbonate/Vitamin D 600 MG-200 Unit] 1 tab PO DAILY 09/06/18 [History] Glimepiride 1 mg PO DAILY 09/06/18 [History] Lisinopril 20 mg PO DAILY 09/06/18 [History] Metoprolol Succinate 25 mg PO DAILY 09/06/18 [History] Multivitamin [Multivitamins] 1 cap PO DAILY 09/06/18 [History] Sertraline [Zoloft] 100 mg PO DAILY 09/06/18 [History] atorvaSTATin Calcium [Atorvastatin Calcium] 40 mg PO DAILY 09/06/18 [History] buPROPion [buPROPion XL] 150 mg PO DAILY 09/06/18 [History] metFORMIN HCl [Metformin HCl] 1,000 mg PO DAILY 09/06/18 [History] Acetaminophen [Tylenol] 325 mg PO Q4H PRN 04/08/20 [History] Sulfamethoxazole/Trimethoprim [Sulfamethoxazole-Tmp Ds Tablet] 1 each PO BIDMEALS 07/03/21 [History] risperiDONE [Risperidone] 0.5 mg PO BEDTIME 07/03/21 [History] Past Medical History HEENT History: Reports: Cataract, Impaired Vision Cardiovascular History: Reports: High Cholesterol, Hypertension, Other (See Below) Other Cardiovascular History: cardiomegaly Respiratory History: Reports: None Gastrointestinal History: Reports: None Genitourinary History: Reports: Urinary Incontinence 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: Musculoskeletal History: Reports: Arthritis, Back Pain, Chronic, Other (See Below) Other Musculoskeletal History: osteopenia Neurological History: Reports: None Psychiatric History: Reports: Depression Endocrine/Metabolic History: Reports: Diabetes, Type II, Obesity/BMI 30+, Osteopenia Hematologic History: Reports: Blood Transfusion(s) Immunologic History: Reports: None Oncologic (Cancer) History: Reports: Other (See Below) Other Oncologic History: CLL Dermatologic History: Reports: None - Infectious Disease History Infectious Disease History: Reports: Chicken Pox, Measles, Mumps, Rubella - Past Surgical History HEENT Surgical History: Reports: Cataract Surgery, Oral Surgery, Tonsillectomy Cardiovascular Surgical History: Reports: None GI Surgical History: Reports: Colonoscopy Endocrine Surgical History: Reports: None Musculoskeletal Surgical History: Reports: None Social & Family History - Family History Family Medical History: No Pertinent Family History - Caffeine Use Caffeine Use: Reports: Coffee Other Caffeine Use: diet ED ROS GENERAL - Review of Systems Review Of Systems: See Below Constitutional: Reports: No Symptoms HEENT: Reports: No Symptoms Respiratory: Reports: No Symptoms Cardiovascular: Reports: No Symptoms Endocrine: Reports: No Symptoms GI/Abdominal: Reports: No Symptoms : Reports: No Symptoms Musculoskeletal: Reports: No Symptoms Skin: Reports: No Symptoms Neurological: Reports: Confusion Psychiatric: Reports: No Symptoms Hematologic/Lymphatic: Reports: No Symptoms Immunologic: Reports: No Symptoms ED EXAM, GENERAL - Physical Exam Exam: See Below Exam Limited By: No Limitations General Appearance: Alert, WD/WN, No Apparent Distress Eye Exam: Bilateral Eye: EOMI, PERRL Head: Atraumatic, Normocephalic Neck: Normal Inspection, Supple, Non-Tender, Full Range of Motion Respiratory/Chest: No Respiratory Distress, Lungs Clear, Normal Breath Sounds, No Accessory Muscle Use, Chest Non-Tender Cardiovascular: Normal Peripheral Pulses, Regular Rate, Rhythm, No Edema, No Gallop, No JVD, No Murmur, No Rub GI/Abdominal: Normal Bowel Sounds, Soft, Non-Tender, No Organomegaly, No Distention, No Abnormal Bruit, No Mass Back Exam: Normal Inspection, Full Range of Motion, NT Extremities: Normal Inspection, Normal Range of Motion, Non-Tender, Normal Capillary Refill, No Pedal Edema Neurological: Alert, Oriented, CN II-XII Intact, Normal Cognition, Normal Gait, No Motor/Sensory Deficits Psychiatric: Normal Affect, Normal Mood Skin Exam: Warm, Dry, Intact, Normal Color, No Rash Lymphatic: No Adenopathy Course - Vital Signs Last Recorded V/S: Last Vital Signs Temp 97.5 F 07/03/21 00:25 Pulse 65 07/03/21 00:25 Resp 18 07/03/21 00:25 BP 158/70 H 07/03/21 00:25 Pulse Ox 96 07/03/21 00:25 - Orders/Labs/Meds Orders: Active Orders 24 hr Category Date Time Status Peripheral IV Care [RC] . DIRECTED Care 07/03/21 00:35 Active Head wo Cont [CT] Stat Exams 07/03/21 01:32 Ordered CBC WITH AUTO DIFF [HEME] Stat Lab 07/03/21 00:35 Results MANUAL DIFFERENTIAL QA/NC [HEME] Stat Lab 07/03/21 00:35 Results Sodium Chloride 0.9% [Saline Flush] Med 07/03/21 00:35 Active 10 ml FLUSH Q8HR PRN Peripheral IV Insertion Adult [OM.PC] Routine Oth 07/03/21 00:35 Ordered Medication Orders Sodium Chloride (Sodium Chloride 0.9% 10 Ml Syringe) 10 ml FLUSH Q8HR PRN PRN Reason: keep vein open Last Admin: 07/03/21 00:53 Dose: 10 ml Documented by: KATHE Labs: Laboratory Tests 07/03/21 07/03/21 07/03/21 Range/Units 00:35 00:35 00:35 WBC 34.47 H* (5.00-10.00) 10^3/uL RBC 4.33 (3.80-5.50) 10^6/uL Hgb 11.9 L (12.0-16.0) g/dL Hct 38.8 (37.0-47.0) % MCV 89.6 (82.0-92.0) fL MCH 27.5 (27.0-31.0) pg MCHC 30.7 L (32.0-36.0) g/dL RDW 13.8 (11.5-14.5) % Plt Count 150 (150-400) 10^3/uL MPV 8.9 (7.4-10.4) fL Add Manual Diff Yes Neutrophils % (Manual) 17 L (50-70) % Lymphocytes % (Manual) 80 H (20-40) % Monocytes % (Manual) 3 (2-8) % Smudge Cells Rare Platelet Estimate Adequate Elliptocytes Rare Sodium 140 (136-145) mmol/L Potassium 5.1 (3.5-5.1) mmol/L Chloride 103 (98-107) mmol/L Carbon Dioxide 24.7 (21.0-32.0) mmol/L Anion Gap 17.4 H (5-15) mmol/L BUN 29 H (7-18) mg/dL Creatinine 1.48 H (0.51-1.17) mg/dL Est Cr Clr Drug Dosing 28.54 mL/min Estimated GFR (MDRD) 34 mL/min Glucose 120 (70-140) mg/dL Calcium 8.7 (8.7-10.3) mg/dL Total Bilirubin 0.3 (0.2-1.0) mg/dL AST 15 (15-37) U/L ALT 18 (14-63) U/L Alkaline Phosphatase 101 (46-116) U/L Total Protein 6.7 (6.4-8.2) g/dL Albumin 3.71 (3.40-5.00) g/dL Specimen Type Urinvoid Urine Color Yellow (YELLOW) Urine Appearance Clear (CLEAR) Urine pH 5.0 (5.0-9.0) Ur Specific [place] 1.015 (1.005-1.030) Urine Protein Negative (NEGATIVE) mg/dL Urine Glucose (UA) Negative (NEGATIVE) mg/dL Urine Ketones Negative (NEGATIVE) mg/dL Urine Occult Blood Negative (NEGATIVE) Urine Nitrite Negative (NEGATIVE) Urine Bilirubin Negative (NEGATIVE) Urine Urobilinogen 0.2 (0.2-1.0) E.U./dL Ur Leukocyte Esterase Trace H (NEGATIVE) Urine RBC 0-5 (0-5) /HPF Urine WBC 0-5 (0-5) /HPF Ur Epithelial Cells Occasional /LPF Urine Bacteria Not seen (NONE TO FEW) /HPF Meds: Medications Generic Name Dose Route Start Last Admin Trade Name Freq PRN Reason Stop Dose Admin Sodium Chloride 10 ml 07/03/21 00:35 07/03/21 00:53 Sodium Chloride 0.9% 10 Ml Syringe FLUSH 10 ml Q8HR PRN Administration keep vein open - Radiology Interpretation Free Text/Narrative:: CT HEAD- NO ACUTE PROCESS - Re-Assessments/Exams Free Text/Narrative Re-Assessment/Exam: 07/03/21 02:01 DISCUSSED INCREASING RISPERIDONE 0.5MG DAILY UNTIL TAKING 2MG BEFORE BEDTIME. PT CURRENTLY TAKING 0.5MG. INSTRUCTED PT TO FOLLOW UP WITH DR HARO NEXT WEEK IN CLINIC FOR RECHECK. DISCUSSED PT SAFETY WITH DAUGHTER WHO STATES SHE WILL STAY WITH MOM UNTIL SHE CAN GET IN TO ASSISTED LIVING. Departure - Departure Time of Disposition: 02:34 Disposition: Home, Self-Care 01 Condition: Good Clinical Impression: Hallucination, visual - Discharge Information Instructions: Psychosis Referrals: Radha Gregorio MD [Primary Care Provider] - Forms: ED Department Discharge Additional Instructions: 1. DISCHARGE HOME 2. INCREASE RISPERIDONE BY 0.5MG DAILY UNTIL TARGET DOSE OF 2MG BEFORE BEDTIME 3. FOLLOW UP WITH DR HARO NEXT WEEK FOR RECHECK 4. RETURN TO ER FOR WORSENING SYMPTOMS 5. CONSIDER ASSISTED LIVING FOR SAFETY AND CLOSE MONITORING Sepsis Event Note (ED) - Evaluation Sepsis Screening Result: No Definite Risk - Focused Exam Vital Signs: Vital Signs Temp Pulse Resp BP Pulse Ox 07/03/21 00:25 97.5 F 65 18 158/70 H 96 - My Orders Last 24 Hours: My Active Orders 07/03/21 00:35 Peripheral IV Care [RC] . DIRECTED CBC WITH AUTO DIFF [HEME] Stat MANUAL DIFFERENTIAL QA/NC [HEME] Stat Sodium Chloride 0.9% [Saline Flush] 10 ml FLUSH Q8HR PRN Peripheral IV Insertion Adult [OM.PC] Routine 07/03/21 01:32 Head wo Cont [CT] Stat - Assessment/Plan Last 24 Hours: My Active Orders 07/03/21 00:35 Peripheral IV Care [RC] . DIRECTED CBC WITH AUTO DIFF [HEME] Stat MANUAL DIFFERENTIAL QA/NC [HEME] Stat Sodium Chloride 0.9% [Saline Flush] 10 ml FLUSH Q8HR PRN Peripheral IV Insertion Adult [OM.PC] Routine 07/03/21 01:32 Head wo Cont [CT] Stat Assessment:: 1. VISUAL HALLUCINATIONS- COGNITIVE DECLINE WITH PSYCHOSIS Plan: 1. DISCHARGE HOME 2. INCREASE RISPERIDONE BY 0.5MG DAILY UNTIL TARGET DOSE OF 2MG BEFORE BEDTIME 3. FOLLOW UP WITH DR HARO NEXT WEEK FOR RECHECK 4. RETURN TO ER FOR WORSENING SYMPTOMS 5. CONSIDER ASSISTED LIVING FOR SAFETY AND CLOSE MONITORING
[2021-07-03 01:21] LABS: ANION GAP 17.4 mmol/L (5-15)
--- NOTE | 2021-07-03 08:51 | CT ---
[id number] CT/CT Head WO IV EXAM: NONCONTRAST HEAD CT INDICATION: DELIRIUM COMPARISON: April 08, 2020. DISCUSSION: Mild generalized atrophy and chronic changes of empty sella. Tiny gas focus nondependent right frontal horn which could be seen from recent intrathecal intervention. Moderate multifocal white matter hypoattenuation is nonspecific, but generally ascribed to chronic small vessel ischemia. No mass effect or midline shift. No acute hemorrhage or extra-axial fluid collection. No acute territorial infarct is identified. A limited look at the orbits and paranasal sinuses is unremarkable. IMPRESSION: 1. No acute findings. Nic Belcher MD 07/03/21 0850 Thank you for allowing us to participate in the care of your patient.
== END 2021-07-03 02:47 | disposition home or self-care (01) ==
LOC: KA.ED 00:16
DX: R44.1 Visual hallucinations (principal); E78.00 Pure hypercholesterolemia, unspecified; I11.9 Hypertensive heart disease without heart failure; E11.9 Type 2 diabetes mellitus without complications; E66.9 Obesity, unspecified; Z68.41 Body mass index [BMI] 40.0-44.9, adult; Z88.0 Allergy status to penicillin; Z79.82 Long term (current) use of aspirin; Z79.899 Other long term (current) drug therapy; Z79.84 Long term (current) use of oral hypoglycemic drugs
CPT/HCPCS: 36415; 70450; 80053; 81001; 85025; 99285; 99285-25

== ENCOUNTER 2021-10-06 18:40 | Emergency (ER) | payer MEDICARE, OTHER ==
[2021-10-06] MEDS ORDERED: Acetaminophen 500 MG Tab PO ONE (19:30)
[2021-10-06] MEDS ORDERED: Acetaminophen 500 MG Tab ONE (19:30)
[2021-10-07 01:24] VITALS: BP 142/60; PULSE 78
== END 2021-10-06 20:30 | disposition home or self-care (01) ==
LOC: KA.ED 18:40
DX: M79.605 Pain in left leg (principal); E78.00 Pure hypercholesterolemia, unspecified; I11.9 Hypertensive heart disease without heart failure; E11.9 Type 2 diabetes mellitus without complications; E66.9 Obesity, unspecified; Z88.0 Allergy status to penicillin; Z79.82 Long term (current) use of aspirin; Z79.899 Other long term (current) drug therapy; Z68.41 Body mass index [BMI] 40.0-44.9, adult
CPT/HCPCS: 73562-LT; 99283; 99284; A9270-GY